=== PATIENT | female | born 2000 | race Caucasian/White ===

== ENCOUNTER 2021-08-07 20:40 | Emergency (ER) | payer SELFPAY ==
[2021-08-07] MEDS ORDERED: Ondansetron ODT 4 MG TAB ONE (21:39)
[2021-08-07 21:53] LABS: Bilirubin Negative (Negative); Blood, Urine Large (Negative); Clarity Slightly Cloudy (Clear); Glucose, Urine (Dipstick) Negative (Negative); Ketone, Urine Negative (Negative); Leukocyte Negative (Negative); Nitrite Negative (Negative); Protein, Urine (Dipstick) 30 mg/dL (Neg-Trace); Urobilinogen 0.2 mg/dL (Less than 2)
[2021-08-07 21:54] LABS: Pregnancy Test - Urine (BHCG) Negative (Negative); Pregu Control Background? CLEAR/WHITE (CLR/WHITE); Pregu Control Bar Appear? YES (CONTROL BAR); Specific Gravity 1.027 (1.002-1.036)
[2021-08-07 21:55] LABS: Specific Gravity, Urine 1.027 (1.002-1.036)
[2021-08-07 22:11] LABS: Bacteria/HPF 2+ HPF (None Seen); Calcium Oxalate Crystals 2+ HPF (None Seen); RBC/HPF Greater than 50 HPF (0-3); Transitional Epithelial 0-3 HPF (None Seen)
[2021-08-07] MEDS ORDERED: Ketorolac Tromethamine 30 MG/ML VIAL ONE (22:11)
== END 2021-08-07 22:45 | disposition home or self-care (01) ==
LOC: MADERS 20:40
DX: N20.0 Calculus of kidney (principal)
CPT/HCPCS: 81003; 81015; 81025; 96372; 99284; J1885; Q0162